=== PATIENT | female | born 1980 | race Caucasian/White ===

== ENCOUNTER 2022-07-08 02:33 | Emergency (ER) | payer OTHER ==
[2022-07-08 02:37] VITALS: BP 138/93; PULSE 73; RESP 18; TEMP 98; BMI 20.8
[2022-07-08] MEDS ORDERED: diphenhydrAMINE HCL 25 MG CAPSULE (FP) PO ONE ×2 (04:10→04:17)
[2022-07-08] MEDS ORDERED: DEXAMETHASONE SOD PHOSPHATE 10 MG/1 ML VIAL IM ONE (04:11)
[2022-07-08] MEDS ORDERED: DEXAMETHASONE SOD PHOSPHATE 10 MG/1 ML VIAL ONE (04:17)
== END 2022-07-08 05:34 | disposition home or self-care (01) ==
LOC: JER 02:33
PROC: 3E023GC Introduction of Other Therapeutic Substance into Muscle, Percutaneous Approach (ICD-10-PCS; principal; 2022-07-08)
DX: T78.40XA Allergy, unspecified, initial encounter (principal)
CPT/HCPCS: 99284-25; J1100